=== PATIENT | male | born 1955 | race Caucasian/White ===

== ENCOUNTER 2017-03-09 14:35 | Emergency (ER) ==
[2017-03-09 14:48] VITALS: TEMP 98.1; BMI 24.3
[2017-03-09] MEDS ORDERED: SODIUM CHLORIDE 1,000 ML IV STA (14:51)
--- NOTE | 2017-03-09 15:00 | ED.PDOC ---
General ED Provider: Dr. FATMATA SANCHEZ Chief Complaint: Fall Stated Complaint: Patient is brought by family after a fall headfirst on to the left side, from roof approximately 5 ft onto frozen ground. Family thought he may have been knocked out. Has deformity/ tenderness to proximal left clavicle area Also Pain/ deformity to left shoulder has also sustained abrasion to the left forehead. Time Seen by Physician: 14:45 Information Source: Patient Exam Limitations: No limitations Nursing and Triage Documentation Reviewed and Agree: Yes Reviewed sepsis parameters & appropriate labs ordered?: Yes System Inflammatory Response Syndrome: Not Applicable Sepsis Protocol: For patient's 13 years and over: Temp is 96.8 and below OR 101 and greater Pulse >90 BPM Resp >20/minute Acutely Altered Mental Status Are patient's symptoms suggestive of a new infection, such as: -Pneumonia -Skin, Soft Tissue -Endocarditis -UTI -Bone, Joint Infection -Implantable Device -Acute Abdominal Infection -Wound Infection -Meningitis -Blood Stream Catheter Infection -Unknown System Inflammatory Response Syndrome: Not Applicable Trauma/Injury Complaint Exam - Trauma Complaint/Exam Location of Pain or Injury: Reports: Head, Neck Mechanism of Injury: Reports: Fall (Five feet from a Roof ) Onset/Duration: 20 mins prior to arrival. Symptoms Are: Still present Timing of Treatment: Immediate Initial Severity: Severe Current Severity: Severe Character: Reports: Aching, Sharp Aggravating: Reports: Movement, Ambulation, Palpation, Deep breathing, Coughing Alleviating: Reports: None Associated Signs and Symptoms: Reports: LOC (possible ) Trauma Findings: Present: Neck tenderness, Limited ROM (on the left clavical ) Skin Findings: Present: Tenderness, Swelling (left clavicular head) Differential Diagnoses: Abrasion, Contusions, Fracture, Hematoma, Sprain, Strain Review of Systems - Review Of Systems Constitutional: Reports: No symptoms Eyes: Reports: No symptoms Ears, Nose, Mouth, Throat: Reports: No symptoms Respiratory: Reports: No symptoms Cardiac: Reports: Chest pain GI: Reports: No symptoms : Reports: No symptoms Musculoskeletal: Reports: Joint pain (Left calvicular area, ), Neck pain Skin: Reports: No symptoms Neurological: Reports: Anxiety, Headache Endocrine: Reports: No symptoms Hematologic/Lymphatic: Reports: No symptoms All Other Systems: Reviewed and Negative Past Medical History - Past Medical History Previously Healthy: Yes Endocrine: Reports: None Cardiovascular: Reports: None Respiratory: Reports: None Hematological: Reports: None Gastrointestinal: Reports: None Genitourinary: Reports: None Neuro/Psych: Reports: None Musculoskeletal: Reports: None Cancer: Reports: None - Surgical History General Surgical History: Reports: None - Family History Family History: Reports: None - Social History Smoking Status: Current every day smoker Hx Substance Use: No Alcohol Screening: None - Immunizations Tetanus Shot up to Date: Yes (couple of years) Physical Exam - Physical Exam Appearance: Ill-appearing Ill-appearing: Moderate Pain Distress: Severe Eyes: EUNICE, EOMI, Conjunctiva clear ENT: Ears normal, Nose normal, Oropharynx normal Neck: Supple Respiratory: Airway patent, Breath sounds clear, Breath sounds equal, Respirations nonlabored Cardiovascular: RRR, Pulses normal, No rub, No murmur GI/: Soft, Nontender, No masses, Bowel sounds normal, No Organomegaly Musculoskeletal: Limited ROM (of shoulder ) Neurological: Sensation intact, Motor intact, Reflexes intact, Cranial nerves intact, Alert, Oriented Psychiatric: Anxious Interpretation - Radiology Interpretation Radiology Interpretation By: Radiologist Radiology Results: Positive (T 12 compression fracture, Left minimally displaced mid calvical fracture) Exam Interpreted: CT Scan Physician Notification - Case Discussed Physician Notified: Dr Rogers Time of Notification: 16:35 (acepted for transfer will consult Dr. Bishop.) Critical Care Note - Critical Care Note Total Time (mins): 40 Course - Course Hematology/Chemistry: 03/09/17 15:18 03/09/17 15:18 Orders, Labs, Meds: Lab Review 03/09/17 03/09/17 15:18 15:18 WBC 15.78 H RBC 4.53 L Hgb 13.7 L Hct 40.5 L MCV 89.4 MCH 30.2 MCHC 33.8 RDW Coeff of Dayanara 13.4 Plt Count 241 Immature Gran % (Auto) 0.8 Neut % (Auto) 85.6 Lymph % (Auto) 8.2 L Stephenson % (Auto) 4.1 Eos % (Auto) 0.6 Baso % (Auto) 0.7 Immature Gran # (Auto) 0.1 Neut # 13.5 H Lymph # 1.3 Stephenson # 0.7 Eos # 0.1 Baso # 0.1 Sodium 139 Potassium 3.8 Chloride 105 Carbon Dioxide 28 Anion Gap 9.8 BUN 21 H Creatinine 0.98 Estimated GFR (MDRD) 77.00 BUN/Creatinine Ratio 21.42 Glucose 107 Calcium 8.8 Total Bilirubin 0.5 AST 28 ALT 27 Alkaline Phosphatase 73 Total Creatine Kinase 188 CK-MB (CK-2) 3.2 CK-MB (CK-2) % 1.77776 Troponin I < 0.0100 Total Protein 7.0 Albumin 3.7 Globulin 3.3 Albumin/Globulin Ratio 1.12 Orders Category Date Time Status EKG-(ED ONLY) Stat CARDIO 03/09/17 14:55 Completed ED IV/MEDIPORT/POWERPORT .ONCE EMERGENCY 03/09/17 14:48 Active CBC W/ AUTO DIFF Stat LAB 03/09/17 15:18 Completed COMPREHENSIVE METABOLIC PANEL Stat LAB 03/09/17 15:18 Completed CREATINE KINASE Stat LAB 03/09/17 15:18 Completed TROPONIN I Stat LAB 03/09/17 15:18 Completed 0.9 % Sodium Chloride [Saline Flush] MEDS 03/09/17 14:48 Ordered 1 syr IVF PRN PRN Hydromorphone HCl [Dilaudid 1 mg/ml Syringe] MEDS 03/09/17 16:48 Discontinued 1 mg IV ONCE STA Morphine Sulfate [Morphine 4 mg/ml Vial] MEDS 03/09/17 15:12 Discontinued 4 mg IVP ONCE STA Ondansetron HCl/Pf [Zofran 4 mg/2 ml] MEDS 03/09/17 15:12 Discontinued 4 mg IVP ONCE STA Sodium Chloride 0.9% [Sodium Chloride] 1,000 ml MEDS 03/09/17 14:[address] ABDOMEN/PELVIS WO CONTRAST Stat RADS 03/09/17 14:[address] CERVICAL SPINE W/O CONTRAST Stat RADS 03/09/17 14:[address] CHEST W/O CONTRAST Stat RADS 03/09/17 14:[address] HEAD W/O CONTRAST Stat RADS 03/09/17 14:47 Completed Medications Generic Name Dose Route Start Last Admin Trade Name Freq PRN Reason Stop Dose Admin Sodium Chloride 1 syr 03/09/17 14:48 Saline Flush IVF PRN PRN To flush IV Discontinued Medications Generic Name Dose Route Start Last Admin Trade Name Freq PRN Reason Stop Dose Admin Hydromorphone HCl 1 mg 03/09/17 16:48 Dilaudid 1 Mg/Ml Syringe IV 03/09/17 16:49 ONCE STA Sodium Chloride 1,000 mls @ 1,000 mls/hr 03/09/17 14:51 03/09/17 15:34 Sodium Chloride IV 03/09/17 15:50 1,000 mls/hr BOLUS STA Administration Morphine Sulfate 4 mg 03/09/17 15:12 03/09/17 15:28 Morphine 4 Mg/Ml Vial IVP 03/09/17 15:13 4 mg ONCE STA Administration Ondansetron HCl 4 mg 03/09/17 15:12 03/09/17 15:45 Zofran 4 Mg/2 Ml IVP 03/09/17 15:13 4 mg ONCE STA Administration Vital Signs: Temp Pulse Resp BP Pulse Ox 03/09/17 15:41 86 21 122/85 97 03/09/17 14:36 98.1 F 81 32 H 131/91 H 94 L Departure - Departure Time of Disposition: 16:50 Disposition: TSF SHORT-TRM HOSP Discharge Problem: Clavicular fracture Qualifiers: Encounter type: initial encounter Clavicle location: unspecified part of clavicle Fracture type: closed Fracture alignment: displaced Laterality: left Qualified Code(s): S42.002A - Fracture of unspecified part of left clavicle, initial encounter for closed fracture Vertebral fracture, closed Qualifiers: Encounter type: initial encounter Fracture of vertebra location: thoracic Thoracic vertebra fracture level: T12 Fracture morphology: unspecified fracture morphology Qualified Code(s): S22.089A - Unspecified fracture of T11-T12 vertebra, initial encounter for closed fracture Condition: Stable Pt referred to PMD for follow-up: Yes Allergies/Adverse Reactions: Allergies No Known Allergies Allergy (Unverified 03/09/17 14:49) Home Medications: Ambulatory Orders 1 [No Reported Medications] 03/09/17 Pt. Stabilized Within Hospital's Capabilities/Transferred To: [facility] Transfer Form Completed: Yes Disposition Discussed With: Patient, Family
[2017-03-09] MEDS ORDERED: ZOFRAN 4 MG/2 ML IVP STA (15:12)
[2017-03-09] MEDS ORDERED: MORPHINE 4 MG/ML VIAL IVP STA (15:12)
[2017-03-09] MEDS ORDERED: MORPHINE 4 MG/ML VIAL ONE (15:21)
--- NOTE | 2017-03-09 15:29 | CT ---
Exam: CT scan of the cervical spine. Date: 03/09/2017. Comparison: None. HISTORY: Fell off a roof. TECHNIQUE: Helical scan of the cervical spine was performed. FINDINGS: No prevertebral soft tissue swelling is seen. There is normal alignment to the cervical s pine. There is loss of intervertebral disc space height with osteophytic spurring at C4-5 and C6-7. Vertebral body heights are maintained at all levels. The odontoid process is intact. Segmental analysis: C1-2: No abnormalities are seen. C2-3: There is mild diffuse disc protrusion with minimal impression upon the thecal sac. There is m ild bilateral neural foraminal narrowing from facet arthropathy. C3-4: There is a small diffuse disc bulge with mild impression upon the thecal sac. There is modera te left neural foraminal narrowing from uncinate process arthropathy. C4-5: There is mild diffuse ventral spondylitic ridge causing mild impression upon the thecal sac an d cord. There is moderate bilateral neural foraminal narrowing from uncinate process arthropathy. C5-6: There is a punctate right paramidline osteophyte with minimal impression upon the thecal sac. There is mild left neural foraminal narrowing from facet uncinate process arthropathy. C6-7: There is mild diffuse spondylitic ridge causing mild impression upon the thecal sac. There is mild left neural foraminal narrowing from uncinate process arthropathy. C7-T1: No abnormalities are seen. Impression: No acute osseous abnormality in the cervical spine with degenerative changes at the leve ls as described above. If further evaluation is needed then MRI would be suggested.
--- NOTE | 2017-03-09 15:33 | CT ---
EXAM: CT Head HISTORY: Headache COMPARISON: None TECHNIQUE: CT head performed without contrast FINDINGS: There is no mass effect, midline shift, or intracranial hemmorhage. Beth white differenti ation is preserved. There is no extra-axial collection. The ventricles, sulci, and basal cisterns a re patent. Mildly asymmetric CSF attenuation right cerebellar pontine angle There is no depressed ca lvarial fracture. The mastoid air cells are clear. The visualized paranasal sinuses are clear. IMPRESSION: 1. No acute intracranial abnormality. 2. Mildly asymmetric CSF attenuation right cerebellar pontine angle, may represent normal variation CSF or small arachnoid or epidermoid cyst. 2
--- NOTE | 2017-03-09 15:34 | CT ---
Exam: CT scan of the thorax without contrast. Date: 03/09/2017. Comparison: None. HISTORY: Fell off roof. TECHNIQUE: Helical scan through the thorax was performed without contrast. FINDINGS: The thoracic inlet and axillary regions are normal. No suspicious mediastinal adenopathy or fluid is present. Granulomatous calcifications are seen. The caliber of the thoracic aorta and c ardiac chambers are normal. The upper abdominal organs are incompletely visualized. There is an acute minimally displaced fracture through the medial head of the left clavicle. The tho racic vertebral bodies are intact and no displaced rib fractures are seen. A bone island is incident ally noted in the T10 vertebral body. Evaluation at lung window settings demonstrates paraseptal emphysematous changes with biapical pleura l thickening, left more than right. There is no visible pleural fluid, pleural separation, suspiciou s pulmonary nodule or consolidation. Tracheobronchial tree is patent. Impression: Minimally displaced fracture of the medial head of the left clavicle without acute intra thoracic findings. Emphysema.
[2017-03-09 15:42] VITALS: BP 122/85
[2017-03-09] MEDS ORDERED: ZOFRAN 4 MG/2 ML ONE (15:42)
--- NOTE | 2017-03-09 15:43 | CT ---
EXAM: CT abdomen pelvis without contrast HISTORY: Left pelvic pain, fall from roof COMPARISON: None TECHNIQUE: CT abdomen pelvis performed without intravenous contrast. Coronal and sagittal reformatt ed images obtained. FINDINGS: Please refer to separate report CT chest regarding findings in the lower chest. No free a ir. There is a mild compression fracture of T12. No retropulsion. Bilateral pars defects L5. 2 mm anterolisthesis of L5 on S1. Evaluation organ parenchyma limited without contrast. Heart normal in size. Liver unremarkable. Gallbladder unremarkable. Pancreas unremarkable. Spleen unremarkable. Adrenals unremarkable. Kidneys unremarkable. Aorta normal in caliber. Mild to moderate atheroscler osis. Bladder unremarkable. Prostate top normal in size. Small fat-containing hernia. No lymphade nopathy or ascites. Stomach appears normal. No dilated loops small bowel. Colon unremarkable. IMPRESSION: 1. Mild compression fracture T12. 2. No acute traumatic injury identified in the abdomen or pelvis, noting limitations without contras t.
[2017-03-09] MEDS ORDERED: DILAUDID 1 MG/ML SYRINGE IV STA (16:48)
[2017-03-09] MEDS ORDERED: DILAUDID 1 MG/ML SYRINGE ONE (16:58)
== END 2017-03-09 17:46 | disposition short-term general hospital (02) ==
LOC: ED 14:35
DX: S42.002A Fracture of unspecified part of left clavicle, initial encounter for closed fracture (principal); S22.089A Unspecified fracture of T11-T12 vertebra, initial encounter for closed fracture; S09.90XA Unspecified injury of head, initial encounter; S19.9XXA Unspecified injury of neck, initial encounter; R07.89 Other chest pain; W13.2XXA Fall from, out of or through roof, initial encounter; F17.210 Nicotine dependence, cigarettes, uncomplicated
CPT/HCPCS: 36415; 80053; 82550; 82553; 84484; 85025; 93005; 93010; 96361; 96374; 96375; 99285